=== PATIENT | female | born 1960 | race Caucasian/White ===

== ENCOUNTER 2024-05-10 13:54 | Emergency (ER) | payer OTHER, SELFPAY ==
[2024-05-10 13:55] VITALS: BP 128/72; PULSE 91; RESP 20; TEMP 37.1; O2SAT 98
== END 2024-05-10 18:00 | disposition left against medical advice (07) ==
LOC: ANHED 05-11 02:44
PROVIDERS: PCP Internal Medicine
DX: S91.311A Laceration without foreign body, right foot, initial encounter (principal); W25.XXXA Contact with sharp glass, initial encounter
CPT/HCPCS: 99199